=== PATIENT | female | born 1995 | race Two or more races ===

== ENCOUNTER 2019-09-19 04:30 | Inpatient (IN) | payer OTHER ==
[~2019-09-19] VITALS: Ht 160 cm; Wt 2.7 kg
[2019-09-19] MEDS ORDERED: LEVOTHYROXINE25 MCG PO (05:59)
[2019-09-19] MEDS ORDERED: INTEGRA PLUS C1 EACH PO (06:02)
[2019-09-19] MEDS ORDERED: NIFEDIPINE20 MG PO (06:02)
[2019-09-19] MEDS ORDERED: OBSTETRIX DHA1 EACH PO (06:02)
== END 2019-09-23 14:29 | disposition home or self-care (01) | DRG 788 ==
LOC: LDR 04:30 → SURG-SUITE 04:30 → O/R 11:18 → OB/GYN 13:13 → SURG-SUITE 14:09
PROVIDERS: ADMIT Specialist; ATTEND Specialist
PROC: 4A1HXCZ Monitoring of Products of Conception, Cardiac Rate, External Approach (ICD-10-PCS; 2019-09-19)
PROC: 10D00Z1 Extraction of Products of Conception, Low, Open Approach (ICD-10-PCS; principal; 2019-09-19 10:00)
DX: O64.8XX0 Obstructed labor due to other malposition and malpresentation, not applicable or unspecified (principal); Z3A.38 38 weeks gestation of pregnancy; Z37.0 Single live birth